=== PATIENT | female | born 1965 | race Caucasian/White ===

== ENCOUNTER 2019-06-12 07:06 | Day surgery (SDC) | payer OTHER ==
[2019-06-12] MEDS ORDERED: GLUCAGON 1 MG/VIAL IV ONE (07:07)
[2019-06-12] MEDS ORDERED: PROPOFOL 10 MG/ML VIAL IV ONE (07:07)
[2019-06-12] MEDS ORDERED: LIDOCAINE 2% MDV (20MG/ML) 20ML VIAL IV ONE (07:07)
--- NOTE | 2019-06-13 08:40 | Operative Note ---
OPERATION: COLONOSCOPY to the cecum and terminal ileum. INDICATION: Episode of diverticulitis this summer in February. She presents today for colonoscopy for further evaluation. Clinically she is improved. ANESTHESIA: Intravenous sedation was administered by the department of anesthesiology and included Diprivan titrated to effect. PROCEDURE: Following informed consent from this alert individual including a discussion of the risks and benefits of the procedure and an opportunity for the patient to ask questions, the patient was in the left lateral decubitus position. A digital rectal examination was performed. No abnormalities were noted. Following this, the Olympus BXQ375 video colonoscope was inserted into the rectum without resistance. The rectal mucosa had a normal appearance with normal folds and distensibility. The colonoscope was advanced up through the colon to the level of the cecum without much difficulty. Throughout the bowel the mucosa appeared normal, the folds were normal, and the bowel was fairly well distensible. There were a few scattered diverticula noted in the sigmoid colon but no evidence of diverticulitis at this time. The cecum was defined by noting the appendiceal orifice and ileocecal valve. The terminal ileum was cannulated for approximately 10-15 cm and found to be unremarkable. From this point, the colonoscope was then slowly withdrawn. Overall, the colon preparation was good. No additional changes were appreciated upon withdrawal with again only mild diverticulosis found in the sigmoid region. No polyps were seen throughout. Retroflexion in the rectum was endoscopically normal. The endoscope was straightened and removed. The patient tolerated the procedure well and was returned to the recovery area in stable condition. IMPRESSION: Sigmoid diverticulosis, otherwise unremarkable colonoscopy to the cecum. RECOMMENDATIONS: The patient was advised to follow up with Dr. Diaz. I did recommend a recheck screening colonoscopy in 10 years' time or sooner if she had a history of polyp or problems arise. As always, thank you for allowing me to participate in the care of your patient. [id number]
== END 2019-06-12 09:07 | disposition home or self-care (01) ==
LOC: HOP 07:06 → EDBD 07:06 → HOP 09:07
PROVIDERS: ATTEND Internal Medicine Gastroenterology
DX: Z09 Encounter for follow-up examination after completed treatment for conditions other than malignant neoplasm (principal); Z87.19 Personal history of other diseases of the digestive system; K57.30 Diverticulosis of large intestine without perforation or abscess without bleeding
CPT/HCPCS: 45378; 00811; J1610